=== PATIENT | male | born 1975 | race Caucasian/White ===

== ENCOUNTER 2016-11-05 07:37 | Emergency (ER) | payer SELFPAY ==
[2016-11-05] MEDS ORDERED: SODIUM CHLORIDE 0.9% 1,000 ML IV ONE (07:52)
[2016-11-05] MEDS ORDERED: FAMOTIDINE 20 MG/50 ML 50 ML IV ONE ×2 (07:53→08:06)
[2016-11-05 08:19] LABS: BASOPHILS # (AUTO) 0.1 10^3/uL (0.0-0.1); BASOPHILS % (AUTO) 0.3 %; HCT - HEMATOCRIT 50.7 % (42.0-52.0); HGB - HEMOGLOBIN 17.7 g/dL (14.0-18.0); LYMPHOCYTES % (AUTO) 7.2 %; MEAN CORPUSCULAR HEMOGLOBIN 32.3 pg (27.0-31.0); MEAN CORPUSCULAR HGB CONC 34.9 g/dL (32.0-36.0); MEAN CORPUSCULAR VOLUME 92.5 fL (80.0-94.0); MONOCYTES % (AUTO) 7.3 %; NEUTROPHILS # (AUTO) 23.7 10^3/uL (1.5-6.6); NEUTROPHILS % (AUTO) 85.2 %; RED BLOOD COUNT 5.48 10^6/uL (4.70-6.10); RED CELL DISTRIBUTION WIDTH 13.6 % (12.0-15.0); UNCORRECTED WHITE BLOOD COUNT 27.9 x10^3/uL; WHITE BLOOD COUNT 27.9 x10^3/uL (4.8-10.8)
[2016-11-05] MEDS ORDERED: HYDROmorphone 1 MG/ML SYRINGE IVP STA ×3 (08:22→10:32)
[2016-11-05] MEDS ORDERED: ONDANSETRON 4 MG/2 ML VIAL IVP STA (08:22)
[2016-11-05] MEDS ORDERED: HYDROmorphone 1 MG/ML SYRINGE ONE ×3 (08:24→10:37)
[2016-11-05] MEDS ORDERED: ONDANSETRON 4 MG/2 ML VIAL ONE (08:24)
--- NOTE | 2016-11-05 08:25 | ED Physician Documentation ---
History of Present Illness - Stated complaint Stated Complaint: VOMITING - Chief complaint Chief Complaint: Abd Pain - Additonal information Additional information: hx from pt 41 male s/p appy and shaka hx stomach pains and diff with BM, has had EGD colonoscopy and MRI all 2 yr ago , dx IBS and Barretts to ER today with upper abd pain NV and hematemesis (streaks) no bloody black BM no asa NSAID ETOH energy drinks etc took zofran [employer] no urine since yesterday Review of Systems Constitutional: denies: Fever, Chills Cardiac: denies: Chest pain / pressure Respiratory: denies: Dyspnea GI: reports: Abdominal Pain, Nausea, Vomiting, Hematemesis. denies: Bloody / black stool : reports: Unable to Void (no urine for 24 hr) Endocrine: denies: Easy bruising / bleeding Immunocompromised: denies: Immunocompromised PD PAST MEDICAL HISTORY - Past Medical History GI: GERD - Past Surgical History Past Surgical History: Yes General: Appendectomy HEENT: Tonsil/Adenoidectomy - Present Medications Home Medications: Ambulatory Orders Medication Instructions Recorded Confirmed Omeprazole 20 mg PO DAILY 12/11/14 11/05/16 Ondansetron Odt [Zofran Odt] 1 tab PO .FREQ 11/05/16 11/05/16 - Allergies Allergies/Adverse Reactions: Allergies Allergy/AdvReac Type Severity Reaction Status Date / Time No Known Drug Allergies Allergy Verified 11/05/16 07:44 - Social History Does the pt smoke?: No Smoking Status: Never smoker Does the pt drink ETOH?: Yes Does the pt have substance abuse?: Yes Substance Use and Type: Marijuana - POLST Patient has POLST: No PD ED PE NORMAL - Vitals Vital signs reviewed: Yes - General General: Alert and oriented X 3, Other (thin ill little pale uncomfortable) - HEENT HEENT: PERRL - Neck Neck: Supple, no meningeal sign - Cardiac Cardiac: RRR - Respiratory Respiratory: No respiratory distress, Clear bilaterally - Abdomen Abdomen: Other (+ BS soft, TTP upper abd with some vol guarding, no lower abd TTP) - Derm Derm: Other (pale) - Neuro Neuro: Alert and oriented X 3 Results - Vitals Vitals: Vital Signs - 24 hr 11/05/16 11/05/16 11/05/16 07:42 07:48 09:01 Temperature 36.7 C Heart Rate 111 H 85 Respiratory 18 18 Rate Blood Pressure 152/89 H 127/90 H O2 Saturation 100 94 11/05/16 11/05/16 10:42 12:21 Temperature Heart Rate 71 75 Respiratory 16 18 Rate Blood Pressure 117/68 108/63 O2 Saturation 94 94 Oxygen O2 Source Room air - Labs Labs: Laboratory Tests 11/05/16 11/05/16 11/05/16 08:05 08:05 08:05 WBC 27.9 H RBC 5.48 Hgb 17.7 Hct 50.7 MCV 92.5 MCH 32.3 H MCHC 34.9 RDW 13.6 Plt Count 347 MPV 9.0 Neut # 23.7 H Lymph # 2.0 [place] # 2.0 H Eos # 0.0 Baso # 0.1 Absolute Nucleated RBC 0.01 Band Neuts % (Manual) Not Reportable Nucleated RBCs 0.0 Differential Comment MANUAL=AUTO DIFF Manual Slide Review Indicated Sodium 131 L Potassium 4.0 Chloride 87 L Carbon Dioxide 17 L Anion Gap 27.0 H BUN 70 H Creatinine 9.8 H* Estimated GFR (MDRD) 6 L Glucose 171 H Calcium 11.1 H Total Bilirubin 2.6 H AST 69 H ALT 31 Alkaline Phosphatase 86 Total Protein 10.6 H Albumin 6.3 H Globulin 4.3 H Albumin/Globulin Ratio 1.5 Lipase 25 Blood Type Blood Type Recheck O POSITIVE Antibody Screen 11/05/16 11/05/16 08:56 08:56 WBC RBC Hgb Hct MCV MCH MCHC RDW Plt Count MPV Neut # Lymph # [place] # Eos # Baso # Absolute Nucleated RBC Band Neuts % (Manual) Nucleated RBCs Differential Comment Manual Slide Review Sodium 131 L Potassium 4.1 Chloride 89 L Carbon Dioxide 18 L Anion Gap 24.0 H BUN 71 H Creatinine 9.8 H* Estimated GFR (MDRD) 6 L Glucose 158 H Calcium 10.6 H Total Bilirubin AST ALT Alkaline Phosphatase Total Protein Albumin Globulin Albumin/Globulin Ratio Lipase Blood Type O POSITIVE Blood Type Recheck Antibody Screen NEGATIVE - Rads (name of study) CT abd pelvis Radiology: See rad report (no acute process, possible blood in stomach and duodenum) PD MEDICAL DECISION MAKING - ED course ED course: 41 male upper GIB per actually does drink several shots a day but none for last 4 days no known varices CT shows no acute tachy but BP and H/H OK could also be withdarwal - gave ativan but new renal failure of unclear etiology - no obstructive process on CT, denies NSAIDS, no "alternate" alcohols ETHYLENE GLYCOL would explain all of the pt sx and lab findings but pt absolutely denies - also denies any chance of this - ordered a level but unlikely going to be resulted soon K WNL not making urine feel pt needs transfer to tertiary care center - doubt creat of 9 is solely dehydration and pt will need a nephrology wup, also doubt pt can go to the OR at [facility] for scope with renal failure called Prov and hospitalist accepts addendum [facility] lab cannot run ethylene glycol or methanol level - given hx from pt and family feel low likelihood though would explain labs - given that they adamantly deny any ingestion not starting fomepizole - will defer running level to Prov if their hospitalist feels appropriate Departure - Departure Disposition: 02 Transfer Acute Care Hosp Clinical Impression: Renal failure, Upper GI bleed, High anion gap metabolic acidosis Abdominal pain Qualifiers: Abdominal location: upper abdomen, unspecified Qualified Code(s): R10.10 - Upper abdominal pain, unspecified Condition: Serious Discharge Date/Time: 11/05/16 12:47
[2016-11-05 08:44] LABS: ALBUMIN/GLOBULIN RATIO 1.5 (1.0-2.2); BILIRUBIN,TOTAL 2.6 mg/dL (0.2-1.0); CALCIUM 11.1 mg/dL (8.5-10.3); TOTAL PROTEIN 10.6 g/dL (6.7-8.2)
[2016-11-05 08:45] LABS: CREATININE 9.8 mg/dL (0.6-1.2)
[2016-11-05 08:51] LABS: NP AUTO DIFFERENTIAL? NO; NP MAN DIFFERENTIAL? YES
[2016-11-05 09:23] LABS: CALCIUM 10.6 mg/dL (8.5-10.3); POTASSIUM 4.1 mmol/L (3.5-5.0)
[2016-11-05 09:24] LABS: CREATININE 9.8 mg/dL (0.6-1.2)
[2016-11-05] MEDS ORDERED: PROMETHAZINE INJ 25 MG in SODIUM CHLORIDE 0.9% 50 ML IV STA (09:38)
[2016-11-05] MEDS ORDERED: PROMETHAZINE 25 MG/1 ML VIAL ONE (09:40)
[2016-11-05] MEDS ORDERED: IOPAMIDOL-300 50 ML VIAL PO ONE (10:08)
--- NOTE | 2016-11-05 10:47 | CT Preliminary Report ---
Exam: CT Abdomen/Pelvis W/O IMPRESSION: 1. Mildly hyperdense fluid within the stomach and distal small bowel. Findings may represent recently ingested material and less typical for blood products. 2. No bowel obstruction. No focal gastric, small bowel or colonic wall thickening is evident on these unenhanced images. 3. Status post cholecystectomy. 4. No nephrolithiasis or hydronephrosis. [facility] SITE ID: [id number]
--- NOTE | 2016-11-05 10:49 | CT Report ---
EXAM: CT ABDOMEN AND PELVIS EXAM DATE: 11/05/2016 09:59 AM. CLINICAL HISTORY: Upper GI bleed. Abdominal pain. Renal failure. Nausea. Vomiting. History of appende ctomy and cholecystectomy. COMPARISONS: 05/19/2013. TECHNIQUE: Routine helical CT imaging was performed through the abdomen and pelvis. IV contrast: None . Enteric contrast: No. Reconstructions: Coronal and sagittal. In accordance with CT protocol optimization, one or more of the following dose reduction techniques w ere utilized for this exam: automated exposure control, adjustment of mA and/or KV based on patient s ize, or use of iterative reconstructive technique. FINDINGS: Lung Bases: Lung bases are clear. Included portions of the heart are unremarkable. Liver: Normal. No masses. Gallbladder/Bile Ducts: Status post cholecystectomy. Spleen: Normal. Pancreas: Normal. Adrenal Glands: Normal. Kidneys: Within the lower pole of the left kidney is a low-attenuation 8 mm indeterminate lesion. No nephrolithiasis or hydronephrosis. No ureteral dilatation. Peritoneal Cavity/Bowel: Stomach is mildly distended and contains mildly hyperdense fluid. Distal sma ll bowel contains hyperdense fluid. No bowel obstruction. No enlarged retroperitoneal or mesenteric l ymph nodes. Small volume of stool in the colon. Distal colon is largely decompressed. No evidence of colonic obstruction. The appendix is not visualized and per history is absent. Pelvic Organs: Urinary bladder is decompressed. No bladder calculi. Prostate gland and seminal vesicl es are unremarkable. No pelvic free fluid . No pelvic adenopathy. Vasculature: No aneurysms or other significant abnormality. Bones: No acute osseous abnormalities. Mild degenerative changes of the lower lumbar spine in particu lar L5-S1. Mild lumbar facet arthropathy. Slight levoscoliosis of the lumbar spine. Other: None. IMPRESSION: 1. Mildly hyperdense fluid within the stomach and distal small bowel. Findings may represent recently ingested material and less typical for blood products. 2. No bowel obstruction. No focal gastric, small bowel or colonic wall thickening is evident on these unenhanced images. 3. Status post cholecystectomy. 4. No nephrolithiasis or hydronephrosis. [facility] Referring Provider Line: [phone] SITE ID: [id number]
[2016-11-05] MEDS ORDERED: SODIUM CHLORIDE 0.9% 2,000 ML IV ONE (11:15)
[2016-11-05] MEDS ORDERED: LORazepam 2 MG/ML SYRINGE IVP STA ×2 (11:29→11:35)
[2016-11-05] MEDS ORDERED: LORazepam 2 MG/ML SYRINGE ONE (11:39)
[2016-11-05 12:22] VITALS: BP 108/63
== END 2016-11-05 12:47 | disposition short-term general hospital (02) ==
LOC: ED 07:37
DX: K92.2 Gastrointestinal hemorrhage, unspecified (principal); N19 Unspecified kidney failure; E87.2 Acidosis; R10.10 Upper abdominal pain, unspecified
CPT/HCPCS: 36415; 74176; 80048; 80053; 83690; 85025; 86850; 86900; 86901; 96365; 96375; 96376; 99284; J1170; J2060; Q9967

== ENCOUNTER 2016-11-05 12:44 | Outpatient (CLI) | payer SELFPAY | END 2016-11-05 12:45 | disposition short-term general hospital (02) | DX: K92.0 Hematemesis (principal); N17.9 Acute kidney failure, unspecified | CPT/HCPCS: A0425; A0426 ==

== ENCOUNTER 2017-08-01 02:28 | Emergency (ER) | payer OTHER ==
[2017-08-01] MEDS ORDERED: SODIUM CHLORIDE 0.9% 1,000 ML IV ONE ×3 (02:54→06:02)
[2017-08-01] MEDS ORDERED: LORazepam 2 MG/ML VIAL IVP STA (02:55)
[2017-08-01] MEDS ORDERED: HYDROmorphone 1 MG/ML SYRINGE IVP STA ×2 (02:55→07:40)
[2017-08-01] MEDS ORDERED: ONDANSETRON 4 MG/2 ML VIAL IVP STA ×2 (02:55→06:33)
[2017-08-01 03:31] LABS: ALBUMIN 5.8 g/dL (3.2-5.5); ALBUMIN/GLOBULIN RATIO 1.5 (1.0-2.2); BILIRUBIN,TOTAL 2.3 mg/dL (0.2-1.0); CALCIUM 9.8 mg/dL (8.5-10.3); TOTAL PROTEIN 9.6 g/dL (6.7-8.2)
[2017-08-01 03:32] LABS: CREATININE 7.4 mg/dL (0.6-1.2)
[2017-08-01 03:55] LABS: BASOPHILS % (AUTO) 0.1 %; HGB - HEMOGLOBIN 16.5 g/dL (14.0-18.0); LYMPHOCYTES # (AUTO) 1.6 10^3/uL (1.5-3.5); LYMPHOCYTES % (AUTO) 8.1 %; MEAN CORPUSCULAR HEMOGLOBIN 31.1 pg (27.0-31.0); MEAN CORPUSCULAR HGB CONC 34.4 g/dL (32.0-36.0); MEAN CORPUSCULAR VOLUME 90.6 fL (80.0-94.0); MEAN PLATELET VOLUME 8.7 fL (7.4-11.4); MONOCYTES # (AUTO) 1.2 10^3/uL (0.0-1.0); MONOCYTES % (AUTO) 6.3 %; NEUTROPHILS # (AUTO) 16.5 10^3/uL (1.5-6.6); NEUTROPHILS % (AUTO) 85.5 %; PLT - PLATELET COUNT 329 10^3/uL (130-450); RED BLOOD COUNT 5.29 10^6/uL (4.70-6.10); RED CELL DISTRIBUTION WIDTH 13.3 % (12.0-15.0); WHITE BLOOD COUNT 19.3 x10^3/uL (4.8-10.8)
[2017-08-01 04:16] LABS: BILIRUBIN,URINE NEGATIVE (NEGATIVE); GLUCOSE, URINE (UA) NEGATIVE (NEGATIVE); KETONES,URINE (UA) TRACE mg/dL (NEGATIVE); LEUKOCYTE ESTERASE, URINE NEGATIVE (NEGATIVE); NITRITE,URINE NEGATIVE (NEGATIVE); OCCULT BLOOD,URINE MODERATE (NEGATIVE); PH,URINE 5.5 PH (5.0-7.5); PROTEIN,URINE 30 mg/dL (NEGATIVE); UROBILINOGEN,URINE 0.2 (NORMAL) E.U./dL (NORMAL)
[2017-08-01 04:21] LABS: CLARITY,URINE HAZY (CLEAR)
[2017-08-01 04:32] LABS: BACTERIA,URINE None Seen /HPF (None Seen); SQUAMOUS EPITHELIAL CELL,UR RARE Squamous (<= Few)
[2017-08-01 04:33] LABS: CRYSTALS,URINE 3-5 Leucine /LPF
[2017-08-01] MEDS ORDERED: FAMOTIDINE 20 MG/50 ML 50 ML IV ONE (04:52)
[2017-08-01] MEDS ORDERED: LIDOCAINE VISCOUS 2% 15 ML UDC MM STA (04:52)
[2017-08-01] MEDS ORDERED: MAG HYDROX/AL HYDROX/SIMETH 30 ML UDC PO STA (04:52)
[2017-08-01] MEDS ORDERED: PHENobarb/HYOSCY/ATROPINE/SCOP 5 ML SYRINGE PO STA (04:53)
--- NOTE | 2017-08-01 05:09 | ED Physician Documentation ---
PD HPI ABD PAIN - Stated complaint Stated Complaint: VOMITING - Chief complaint Chief Complaint: Abd Pain - History obtained from History obtained from: Patient, Family (spouse) - History of Present Illness Timing - onset: How many days ago (2) Timing - duration: Days (2) Timing - details: Still present Quality: Pain Associated symptoms: Nausea, Vomiting Similar symptoms before: Diagnosis (Cyclic Vomiting Syndrome) - Additional information Additional information: The patient is a 42-year-old male who has history of cyclic vomiting syndrome, who has been vomiting for the past 2 days. He complains of upper abdominal pain. He denies fever, diarrhea, or dysuria. His states that his urine output has markedly diminished. He has a prior history of similar symptoms and has been hospitalized with creatinine as high as 9 in November 2016. More recently he was hospitalized with a creatinine of 4 in March,. Past surgical history is significant for appendectomy and cholecystectomy. Review of Systems Constitutional: denies: Fever Nose: denies: Congestion Throat: denies: Sore throat Cardiac: denies: Chest pain / pressure Respiratory: denies: Dyspnea, Cough GI: reports: Abdominal Pain, Nausea, Vomiting. denies: Diarrhea : denies: Dysuria Skin: denies: Rash Musculoskeletal: denies: Back pain, Extremity pain Neurologic: denies: Focal weakness, Numbness, Headache PD PAST MEDICAL HISTORY - Past Medical History Cardiovascular: None Respiratory: None Neuro: None GI: GERD, Other (Cyclic vomiting syndrome.) Other Past Medical History: cyclic vomiting syndrome - Past Surgical History Past Surgical History: Yes General: Appendectomy HEENT: Tonsil/Adenoidectomy - Present Medications Home Medications: Ambulatory Orders Medication Instructions Recorded Confirmed Ondansetron Odt [Zofran Odt] 1 tab PO PRN PRN 11/05/16 08/01/17 HYDROmorphone [Dilaudid] 4 mg PO ONCE 08/01/17 08/01/17 LORazepam [Ativan] 0.5 mg PO PRN PRN 08/01/17 08/01/17 Metoclopramide [Reglan] 5 mg PO Q6H 08/01/17 08/01/17 Multivitamin [Multivitamins] 1 cap PO DAILY 08/01/17 08/01/17 Nortriptyline [Pamelor] 10 mg PO QPM 08/01/17 08/01/17 Polyethylene Glycol 3350 [Miralax] 17 gm PO DAILY 08/01/17 08/01/17 - Allergies Allergies/Adverse Reactions: Allergies Allergy/AdvReac Type Severity Reaction Status Date / Time No Known Drug Allergies Allergy Verified 08/01/17 02:41 - Social History Does the pt smoke?: No Smoking Status: Never smoker Does the pt drink ETOH?: No Does the pt have substance abuse?: Yes Substance Use and Type: Marijuana - POLST Patient has POLST: No PD ED PE NORMAL - Vitals Vital signs reviewed: Yes (Mildly tachycardic.) - General General: Alert and oriented X 3, Well developed/nourished, Other (Appears miserable.) - HEENT HEENT: Atraumatic, EOMI, Pharynx benign, Other (Dry mucous membranes.) - Neck Neck: Supple, no meningeal sign, No adenopathy, No JVD - Cardiac Cardiac: No murmur, Other (Slightly rapid rate, regular rhythm.) - Respiratory Respiratory: No respiratory distress, Clear bilaterally - Abdomen Abdomen: Soft, Non distended, No organomegaly, Other (Diminished bowel tones, with mild tenderness to palpation across the upper abdomen, without rebound tenderness or guarding.) - Back Back: No CVA TTP - Derm Derm: No rash - Extremities Extremities: No edema, No calf tenderness / cord - Neuro Neuro: Alert and oriented X 3, No motor deficit, No sensory deficit Results - Vitals Vitals: Vital Signs - 24 hr 08/01/17 08/01/17 08/01/17 02:32 04:04 06:23 Temperature 36.7 C Heart Rate 98 79 79 Respiratory 20 14 12 Rate Blood Pressure 131/63 H 125/86 H 130/84 H O2 Saturation 96 94 93 08/01/17 07:52 Temperature Heart Rate Respiratory 18 Rate Blood Pressure 121/89 H O2 Saturation 95 Oxygen O2 Source Room air - Labs Labs: Laboratory Tests 08/01/17 08/01/17 08/01/17 02:53 02:54 02:54 WBC 19.3 H RBC 5.29 Hgb 16.5 Hct 47.9 MCV 90.6 MCH 31.1 H MCHC 34.4 RDW 13.3 Plt Count 329 MPV 8.7 Neut # 16.5 H Lymph # 1.6 [place] # 1.2 H Eos # 0.0 Baso # 0.0 Absolute Nucleated RBC 0.00 Nucleated RBC % 0.0 Sodium 128 L Potassium 4.0 Chloride 87 L Carbon Dioxide 19 L Anion Gap 22.0 H BUN 84 H* Creatinine 7.4 H* Estimated GFR (MDRD) 8 L Glucose 165 H Calcium 9.8 Total Bilirubin 2.3 H AST 33 ALT 23 Alkaline Phosphatase 66 Total Creatine Kinase 437 H Total Protein 9.6 H Albumin 5.8 H Globulin 3.8 Albumin/Globulin Ratio 1.5 Lipase 19 L Urine Color Urine Clarity Urine pH Ur Specific [place] Urine Protein Urine Glucose (UA) Urine Ketones Urine Occult Blood Urine Nitrite Urine Bilirubin Urine Urobilinogen Ur Leukocyte Esterase Urine RBC Urine WBC Ur Squamous Epith Cells Urine Crystals Urine Bacteria Urine Casts Ur Microscopic Review Urine Culture Comments 08/01/17 08/01/17 04:00 05:35 WBC RBC Hgb Hct MCV MCH MCHC RDW Plt Count MPV Neut # Lymph # [place] # Eos # Baso # Absolute Nucleated RBC Nucleated RBC % Sodium 130 L Potassium 3.8 Chloride 94 L Carbon Dioxide 19 L Anion Gap 17.0 H BUN 73 H Creatinine 5.3 H Estimated GFR (MDRD) 12 L Glucose 126 H Calcium 8.3 L Total Bilirubin AST ALT Alkaline Phosphatase Total Creatine Kinase Total Protein Albumin Globulin Albumin/Globulin Ratio Lipase Urine Color YELLOW Urine Clarity HAZY Urine pH 5.5 Ur Specific [place] >=1.030 H Urine Protein 30 H Urine Glucose (UA) NEGATIVE Urine Ketones TRACE Urine Occult Blood MODERATE H Urine Nitrite NEGATIVE Urine Bilirubin NEGATIVE Urine Urobilinogen 0.2 (NORMAL) Ur Leukocyte Esterase NEGATIVE Urine RBC 6-10 H Urine WBC 4-5 Ur Squamous Epith Cells RARE Squamous Urine Crystals 3-5 Leucine Urine Bacteria None Seen Urine Casts 6-10 Hyaline Casts Ur Microscopic Review INDICATED Urine Culture Comments NOT INDICATED PD MEDICAL DECISION MAKING - ED course Complexity details: reviewed old records, reviewed results, re-evaluated patient , considered differential, d/w patient, d/w family, d/w tanning consultant ED course: The patient's presentation is significant for 2 day history of vomiting, with dehydration, and acute renal failure with a creatinine of 7.4. His BUN is 84 and creatinine kinase is 437. His bilirubin is also elevated at 2.3. White count is elevated at 19.3. Urinalysis is positive for protein with moderate hematuria with 6-10 red cells per high-powered field. Treatment in the emergency department included administration of normal saline 2 L IV, followed by a infusion at 500 mL/h. Dilaudid 1 mg, Zofran 4 mg IV 2, and Ativan 1 mg were administered IV. Famotidine 20 karson-grams was administered IV, and GI cocktail was administered orally. Repeat basic metabolic panel reveals improvement of his creatinine to 5.3, and his sodium has improved from 128 to 130. I discussed his condition with the accepting physician for [place] at [facility]. She will accept the patient in transfer. He is being transferred by ALS ambulance. Transfer forms were completed. Departure - Departure Disposition: 02 Transfer Acute Care Hosp Clinical Impression: Vomiting, Dehydration, Metabolic acidosis, Hyponatremia, Hyperbilirubinemia Acute renal failure Qualifiers: Acute renal failure type: unspecified Qualified Code(s): N17.9 - Acute kidney failure, unspecified Discharge Date/Time: 08/01/17 08:02
[2017-08-01 05:50] LABS: CALCIUM 8.3 mg/dL (8.5-10.3); CREATININE 5.3 mg/dL (0.6-1.2)
[2017-08-01] MEDS ORDERED: HYDROmorphone 1 MG/ML SYRINGE ONE (07:50)
[2017-08-01 07:53] VITALS: BP 121/89
== END 2017-08-01 08:02 | disposition short-term general hospital (02) ==
LOC: ED 02:28
DX: R11.10 Vomiting, unspecified (principal); E86.0 Dehydration; E87.2 Acidosis; E87.1 Hypo-osmolality and hyponatremia; E80.6 Other disorders of bilirubin metabolism; N17.9 Acute kidney failure, unspecified
CPT/HCPCS: 36415; 80048; 80053; 81001; 82550; 83690; 85025; 96361; 96365; 96375; 96376; 99284; 99285; A9270; J1170; J2060; 81003; 87086

== ENCOUNTER 2017-08-01 08:05 | Outpatient (CLI) | payer OTHER | END 2017-08-01 08:06 | disposition short-term general hospital (02) | LOC: EMS 08:05 | PROVIDERS: ATTEND Surgery | DX: N17.9 Acute kidney failure, unspecified (principal) | CPT/HCPCS: A0170; A0425; A0426 ==